=== PATIENT | male | born 1935 | race Caucasian/White ===

== ENCOUNTER → 2016-07-11 | Outpatient (CLI) | payer MEDICARE ==
[~2016-07-11] MED LIST: ADVAIR 250/5028 PUFF INH; ASPI-COR81 M1 PO; CIPRO 500MG TA500 MG PO; DOXAZOSIN 4MG TA4 MG PO; GLIPIZIDE10 MG PO; IPRATROPIUM/ SOL ALB INH; LOSARTAN POTASS50 MG PO; MECLIZINE12.5 MG PO; METFORMIN HCL1000 MG PO; NAPROSYN 250MG250 MG PO; ONGLYZA5 MG PO; PROAIR HFA0.09 MG/AC IH; SIMVASTATIN20 MG PO; TORADOL10 M1 PO; VITAMIN B125000 MCG SL; ZOFRAN4 MG PO
--- NOTE | 2016-07-11 14:41 | RADIOLOGY REPORT PS360 ---
KNEE-3 VIEWS-RT HISTORY: Right knee pain OA ORDERING PHYSICIAN: Cristhian Kang MD PATIENT AGE: 80 years COMPARISON: None FINDINGS: No fracture or dislocation. No lytic or blastic change. Normal mineralization. Slight decrease in the joint space medially with minimal spurring at the proximal tibia and the posterior patella. There are enthesophytes at the quadriceps tendon insertion Atherosclerotic vascular calcification IMPRESSION: Minor osteoarthritic change of the right knee.
--- NOTE | 2016-07-11 14:43 | RADIOLOGY REPORT PS360 ---
KNEE-3 VIEWS-LT HISTORY: Osteoarthritis, knee pain OA ORDERING PHYSICIAN: Cristhian Kang MD PATIENT AGE: 80 years COMPARISON: None FINDINGS: No fracture or dislocation. No lytic or blastic change. Normal mineralization. There are moderate to severe osteoarthritic changes of the left knee involving all 3 compartments worse at the medial compartment and patellofemoral joint. There is prominence of the trabecula about the knee . No fracture or dislocation. There is a small suprapatellar effusion. IMPRESSION: Moderate to severe osteoarthritic change of the left knee with small knee joint effusion
== END ==
LOC: RAD 14:01
DX: M17.0 Bilateral primary osteoarthritis of knee (principal)